=== PATIENT | female | born 1970 | race Caucasian/White ===

== ENCOUNTER → 2024-08-19 | Outpatient (CLI) | payer OTHER ==
[2024-08-19 12:29] LABS: BASO # 0.03 K/mm3 (0.02-0.10); EOS # 0.21 K/mm3 (0.04-0.40); EOS % 4.8 % (1.0-5.0); HEMATOCRIT 36.6 % (37.0-47.0); LYMPH# 1.09 K/mm3 (1.50-4.00); MEAN CELL VOLUME 93 fl (78-100); MEAN CORPUSCULAR HEMOGLOBIN 30 pg (27-31); MEAN CORPUSCULAR HGB CONC 33 g/dL (33-37); MEAN PLATELET VOLUME 9.3 fl (7.4-10.4); MONO # 0.35 K/mm3 (0.20-0.80); NEU # 2.74 K/mm3 (1.40-6.50); PLATELET COUNT 326 K/mm3 (130-400); RED BLOOD COUNT 3.95 M/mm3 (4.10-5.30); RED CELL DISTRIBUTION WIDTH 13.5 % (11.5-14.5); WHITE BLOOD COUNT 4.4 K/mm3 (4.8-10.8)
[2024-08-19 12:44] LABS: ALBUMIN 4.1 g/dL (3.5-5.0)
[2024-08-19 12:45] LABS: CALCIUM 9.4 mg/dL (8.3-10.5)
[2024-08-19 12:47] LABS: TOTAL PROTEIN 6.7 g/dL (6.4-8.3)
[2024-08-19 12:49] LABS: TOTAL BILIRUBIN 0.3 mg/dL (0.2-1.2)
[2024-08-20 13:46] LABS: ANA SCREEN with REFLEX Negative (Negative)
== END ==
LOC: LAB 12:15
PROVIDERS: Nurse Practitioner
DX: Z00.00 Encounter for general adult medical examination without abnormal findings (principal); Z13.220 Encounter for screening for lipoid disorders; Z86.39 Personal history of other endocrine, nutritional and metabolic disease

== ENCOUNTER → 2024-09-18 | Outpatient (CLI) | payer OTHER ==
[2024-09-18 14:31] LABS: CLUE CELLS NOT OBSERVED (Not Observd)
[2024-09-19 14:14] LABS: HEPATITIS C ANTIBODY Nonreactive (Nonreactiv)
== END ==
LOC: LAB 14:00
PROVIDERS: Nurse Practitioner
DX: Z20.2 Contact with and (suspected) exposure to infections with a predominantly sexual mode of transmission (principal)
CPT/HCPCS: Q0111